=== PATIENT | male | born 1970 | race Caucasian/White ===

== ENCOUNTER 2017-07-16 10:00 | Emergency (ER) | payer MEDICARE, OTHER ==
[~2017-07-16 10:00] MED LIST: MOBI15TA PO; PERC5TAB12 PO; TETA1INJ5 IM; TOPI1TAB97 PO; VARE1PAK3 PO; ZANA4CAP PO
[2017-07-16 10:08] VITALS: BP 164/95; PULSE 101; RESP 16; TEMP 98.5; O2SAT 99
[2017-07-16] MEDS ORDERED: LIDOCAINE HCL 1% 30 ML VIAL INFIL ONE (11:15)
[2017-07-16] MEDS ORDERED: LIDOCAINE 1%/EPINEPHrine 1:100,000 SOLN 20 ML VIAL INFIL ONE (11:15)
[2017-07-16] MEDS ORDERED: LIDOCAINE 2%/EPINEPHrine 1:100,000 30ML MDV INFIL ONE (11:15)
[2017-07-16] MEDS ORDERED: LIDOCAINE 2%/EPINEPHrine 1:100,000 50ML MDV ONE (11:30)
--- NOTE | 2017-07-16 11:44 | PD ---
HPI Chief Complaint: Foreign Body Time Seen by Provider: 11:05 Travel History International Travel<30 days: No Contact w/Intl Traveler<30days: No Traveled to known affect area: No History of Present Illness HPI 46-year-old male presents emergency Department with fishhook embedded in the left upper extremity. Patient reports prior to arrival he was climbing into his boat leaned on the center console where a 3 prong fish hook was lying which embedded in his arm. He reports mild discomfort at the site. He denies numbness or tingling in the extremity. Tetanus status unknown PFSH Past Medical History Arthritis: No Asthma: No Blood Disorders: No Anxiety: Yes Depression: No Heart Rhythm Problems: No Cancer: Yes (LYMPHOMA) Cardiovascular Problems: No High Cholesterol: No Chemotherapy: Yes (PAST) Chest Pain: No Congestive Heart Failure: No COPD: No Cerebrovascular Accident: No Diabetes: No Diminished Hearing: No Endocrine: No Gastrointestinal Disorders: No GERD: No Genitourinary: No Headaches: No Hepatitis: No Hiatal Hernia: No Hypertension: No Immune Disorder: No Implanted Vascular Access Dvce: Yes Kidney Stones: No Musculoskeletal: Yes Neurologic: No Psychiatric: Yes Reproductive: No Respiratory: Yes (EMBOLISM PAST) Immunizations Current: No Migraines: No Myocardial Infarction: No Radiation Therapy: No Seizures: No Sleep Apnea: No Thyroid Disease: No Tetanus Vaccination: Unknown Influenza Vaccination: No PNEUMOCCOCAL Vaccine (Year): 2 Past Surgical History Abdominal Surgery: Yes (HERNIA REPAIR) Appendectomy: No Arteriovenous Shunt: No Body Medical Devices: Power Port right upper chest Cardiac Surgery: No Cholecystectomy: No Ear Surgery: No Endocrine Surgery: No Eye Surgery: No Genitourinary Surgery: No Gynecologic Surgery: No Insulin Pump: No Joint Replacement: No Neurologic Surgery: No Oral Surgery: No Pacemaker: No Thoracic Surgery: No Other Surgery: Yes (Port placed) Social History Alcohol Use: No Tobacco Use: Yes (1 PPD) Substance Use: No Allergies-Medications (Allergen,Severity, Reaction): Coded Allergies: codeine (Unverified Allergy, Severe, Rash, 07/16/17) acetaminophen (Unverified Allergy, Mild, ITCH, 07/16/17) hydrocodone (Unverified Allergy, Mild, ITCH, 07/16/17) Reported Meds & Prescriptions Reported Meds & Active Scripts Active Keflex (Cephalexin) 500 Mg Cap 500 Mg PO Q6H Mobic (Meloxicam) 15 Mg Tab 15 Mg PO DAILY Review of Systems Except as stated in HPI: all other systems reviewed are Neg Physical Exam Narrative GENERAL: Well-nourished, well-developed patient. SKIN: Focused skin assessment warm/dry. 1 Peyton from a 3 prong fish embedded superficially in the left upper extremity posterior aspect. No joint penetration suspected. HEAD: Normocephalic. CARDIOVASCULAR: Regular rate and rhythm without murmurs, gallops, or rubs. RESPIRATORY: Breath sounds equal bilaterally. No accessory muscle use. GASTROINTESTINAL: Abdomen soft, non-tender, nondistended. MUSCULOSKELETAL: No cyanosis, or edema. Left upper extremity: Patient has full range of motion and normal sensation. 2+ distal pulses. Data Data Last Documented VS Vital Signs Date Time Temp Pulse Resp B/P Pulse Ox O2 Delivery O2 Flow Rate FiO2 07/16/17 10:59 07/16/17 10:08 98.5 101 16 99 Orders Lidocaine 1% Inj (Xylocaine 1% Inj) (07/16/17 11:15) Lidocai-Epi 2%-1:100,000 Inj (Xylocaine- (07/16/17 11:30) MDM Medical Decision Making Medical Screen Exam Complete: Yes Emergency Medical Condition: Yes Differential Diagnosis Subcutaneous foreign body, wound infection, puncture wound Narrative Course 46-year-old male with fishhook embedded superficially in the left upper extremity. No joint penetration or injury to underlying structures suspected. Extremities neurovascular intact. [place] removed using push through method. Patient tolerated procedure well. Patient be placed on antibiotics. Tetanus status updated. Wound care and return precautions discussed with patient. Patient verbalizes understanding and agrees to plan Procedures Procedure Narrative [place] removal: The area was prepped with Betadine. 1 cc of 2% lidocaine with epi infiltrated to anesthetize the area. The hook was removed using push her method. Area irrigated with sterile saline. Patient tolerated procedure well. The extremity is neurovascularly intact post procedure Diagnosis Primary Impression: Foreign body (FB) in soft tissue Referrals: Primary Care Physician Additional Instructions: Take the antibiotics as prescribed. Cleansed the area daily with soap and water and apply clean dressing. Follow-up with her primary care doctor for recheck. Return to emergency department if he developed new or worsening symptoms. Scripts Cephalexin (Keflex)500 Mg [id number] Mg PO Q6H #28 CAP Prov:Sydnie Mcintosh 07/16/17 Disposition: 01 DISCHARGE HOME Condition: Stable Sydnie Mcintosh Jul 16, 2017 11:44
[2017-07-16] MEDS ORDERED: CEPH-460 PO (11:49)
[2017-07-16] MEDS ORDERED: TETANUS/DIPHTHERIA TOXOID ADULT 0.5 ML VIAL IM ONE (12:00)
[2017-07-19] MEDS ORDERED: MOBI15TA PO (16:35)
[2017-08-16] MEDS ORDERED: LISI2.5T3 PO (16:32)
[2017-08-26] MEDS ORDERED: VARE1PAK5 PO (12:11)
== END 2017-07-16 12:04 | disposition home or self-care (01) ==
LOC: PHED 10:00 → PHEFT 12:04
DX: S41.142A Puncture wound with foreign body of left upper arm, initial encounter (principal); W45.8XXA Other foreign body or object entering through skin, initial encounter; Y93.89 Activity, other specified; Y92.814 Boat as the place of occurrence of the external cause; Z23 Encounter for immunization
CPT/HCPCS: 24200; 25248; 90471; 90714

== ENCOUNTER → 2018-03-14 | Outpatient (CLI) | payer MEDICARE, OTHER ==
[~2018-03-14] MED LIST changes: +LISI-519 PO; +OXYC1TAB63 PO; -PERC5TAB12 PO; -TETA1INJ5 IM; -TOPI1TAB97 PO; -VARE1PAK3 PO; -ZANA4CAP PO
[2018-03-14 10:41] LABS: BICARBONATE 26.9 MEQ/L (21.0-32.0); CALCIUM 9.4 MG/DL (8.5-10.1)
== END ==
LOC: PLAB 08:05
PROVIDERS: ATTEND Family Medicine
DX: I10 Essential (primary) hypertension (principal)
CPT/HCPCS: 36415; 80048